=== PATIENT | female | born 1980 | race Hispanic/Latino ===

== ENCOUNTER 2023-04-17 13:30 | Emergency (ER) | payer OTHER ==
[~2023-04-17] VITALS: Ht 162.6 cm; Wt 68.0 kg
[2023-04-17 14:42] VITALS: BP 162/73; PULSE 64; RESP 16; O2SAT 98
[2023-04-17] MEDS ORDERED: KETOROLAC 30MG VIAL (30MG/ML) IM ONE (15:30)
[2023-04-17] MEDS ORDERED: CYCLOBENZAPRINE HCL 10 MG TABLET PO ONE (15:30)
[2023-04-17 16:00] LABS: HCG,QUALITATIVE URINE NEGATIVE (NEGATIVE)
[2023-04-17 16:04] LABS: APPEARANCE,URINE CLEAR (CLEAR); BILIRUBIN,URINE NEGATIVE (NEGATIVE); COLOR,URINE LIGHT-YELLOW (YELLOW); GLUCOSE, URINE (UA) NEGATIVE (NEGATIVE); KETONES,URINE NEGATIVE (NEGATIVE); LEUKOCYTE ESTERASE ,URINE NEGATIVE Leu/uL (NEGATIVE); NITRATE,URINE NEGATIVE (NEGATIVE); OCCULT BLOOD,URINE NEGATIVE (NEGATIVE); PROTEIN,URINE NEGATIVE (NEGATIVE); UROBILINOGEN,URINE 0.2 mg/dL (0.2-1.0)
[2023-04-17 16:07] LABS: ADD UA MICROSCOPIC NO
[2023-04-17] MEDS ORDERED: IBUP-2070 PO (16:12)
[2023-04-17] MEDS ORDERED: CYCL10TA16 PO (16:12)
== END 2023-04-17 16:58 | disposition home or self-care (01) ==
LOC: EDH 13:30
DX: S39.012A Strain of muscle, fascia and tendon of lower back, initial encounter (principal); Z98.890 Other specified postprocedural states; X58.XXXA Exposure to other specified factors, initial encounter; Y93.89 Activity, other specified; Y92.89 Other specified places as the place of occurrence of the external cause; Y99.8 Other external cause status
CPT/HCPCS: 99283; 81003; 81025; 96372; J1885